=== PATIENT | female | born 1950 | race Caucasian/White ===

== ENCOUNTER 2024-05-23 10:47 | Emergency (ER) | payer MEDICARE, OTHER, SELFPAY ==
[2024-05-23] VITALS (8 sets, daily range): BP systolic 107–141; BP diastolic 50–88; PULSE 60–63
--- NOTE | 2024-05-23 12:04 | ED.GENMED ---
History of Present Illness
General
Chief Complaint: Fainting Sensation
Source: patient
Exam Limitations: none
Time Seen by Provider: 05/23/24 11:25
Nursing documentation reviewed up to this point in time: agreed with
History of Present Illness
History of Present Illness:
pt is a 74 y/o F with h/o remote breast CA;
h/o 'low blood pressure' and near syncope episodes throughout her life, never seen by cards
here with syncope while at the [employer]
she was sittin ruth the chair getting her hair colored and suddenly felt lightheaded with tunnel vision; told the staff that she felt hot and needed to put her head down. she leaned forward and then felt better, which is what she normally does when
she feels this way
then they sat her up and she got up and felt very lightheaded again and warm
they sat her down to get the dye out of her hair and she passed out
pt had no cp, sob, abdominal pain, vomiting, headache, vision changes, weakness
she feels much better now
no black stool or anemia
does say she has ahd 2 nera syncope episodes while she had covid on paxlovid and wasn't eating, that was about 3 weeks ago
Past History
Past History
ED Past Medical History: Cancer (breast) and Hypothyroidism
Social History
Tobacco: Non-smoker
Review of Systems
Review of Systems
Allergies reviewed?: Yes
All Other Systems: Not applicable
Phy Exam
Physical Exam
Physical Exam:
GENERAL: Alert , in no apparent distress
EYE: pupils equal and reactive
NECK: Supple
ENT: o/p clr, mmm.
CARDIAC: Regular rate and rhythm . Minimal ankle edema
LUNGS: Clear breath sounds bilaterally, no acute respiratory distress, no wheezes/rales/rhonchi
ABDOMEN: Soft, without focal tenderness, no r/g, no cvat, normal bowel sounds
NEUROLOGICAL: Alert and oriented, no focal neuro deficits
SKIN: Warm and dry, skin intact.
MUSCULOSKELETAL: Minimal ankle edema edema, well perfused. neg anuja's sign
PSYCH: Normal and appropriate interaction.
Course
Orders/Labs/Results
Orders:
Orders
05/23/24 10:55
Electrocardiogram (*1) Urgent
Reason for Study: Fatigue / Weakness
EKG- Treatment ONCE
05/23/24 12:17
Orthostatic VS- Treatment ONCE
05/23/24 12:31
CMP [Comprehensive Metabolic Panel] Urgent
Complete Blood Count/With Diff Urgent
05/23/24 12:57
0.9% Sodium Chloride 1000 ml [Nss] 1,000 ml IV BOLUS
Abnormal Lab Results
05/23/24
12:31
RBC 3.64 L 10^6/uL
(4.20-5.40)
Hgb 11.4 L g/dL
(12.0-16.0)
Hct 32.8 L %
(37.0-47.0)
MCH 31.3 H pg
(27.0-31.0)
RDW 14.6 H %
(11.5-14.5)
Absolute Lymphs (auto) 1.0 L 10^3/uL
(1.2-3.4)
Immature Gran % 0.6 H %
(0-0.5)
Neutrophils % 78.9 H %
(42.2-75.2)
Lymphocytes % 13.5 L %
(20.5-51.1)
Sodium 132 L mmol/L
(135-145)
Chloride 97 L mmol/L
(98-107)
BUN 24 H mg/dl
(7-17)
Glucose 101 H mg/dl
(70-99)
Calcium 10.5 H mg/dl
(8.4-10.2)
AST 39 H U/L
(14-36)
05/23/24 12:31
05/23/24 12:31
Vital Signs
Initial and Last Documented VS:
Initial Vital Signs
BP
133/50
05/23/24 10:50
Last Documented Vital Signs
Temp Pulse Resp BP Pulse Ox
98.1 F 65 22 139/75 100
05/23/24 10:52 05/23/24 13:15 05/23/24 13:15 05/23/24 13:00 05/23/24 13:15
MDM/Problems Addressed
Differential Diagnosis Includes:
dehydration, vasovagal episode
MDM/Problems Addressed:
74 y/o F
h/o near syncope in the past when dehydrated or standing up quickly, sh ehas low bp to begin with
near syncope while getting her hair colored; she was sitting upright, got warm and then tunnel vision
tried to put her head between legs and felt better briefly but then stood up and needed to sit down and passed out
no injuries
had very low bp for ems 60/40
back up to [facility]
feels well now
ate and drank normally today
no pain prior to syncope, no cp, sob, no dysrhythmia
on exam well appearing
no obvious murmur
lungs clear
neuro intact
ekg sinus kate
RBBB
bun slightly elevated
hg stable
orthos neg
got some IVF bu ther iv line was slow
reassessed 1350 and wants to go home
says this happens to her a lot and will drink water to stay hydrated
this was likely dehydration/vasovagal
d/c home
*Critical Care Note
Total Time (30-74mins, 75-104mins- exclusive of procedures): Not Applicable
ED Attending Note
-
Portions of this chart may have been created with voice recognition software.� Occasional wrong word or��sound alike� substitutions may have occurred due to the inherent limitations of voice recognition software.
Discharge Plan
Departure
Patient Disposition: Home (Routine Discharge)
Date of Disposition: 05/23/24
Time of Disposition: 13:52
Patient with high blood pressure during this ER visit?: No
Condition: Fair
Covid-19: Not Applicable
Discharge Problem:
Dehydration, Syncope, vasovagal
Instructions: Syncope (Fainting) (DC), Dehydration, Adult ED
Referrals:
Juan Jose Arias, DO [Active] - Follow up in 5-7 days
Paris Laguerre, [Family Provider] - Follow up in 2-3 days
Activity Restrictions/Additional Instructions:
You probably had a vasovagal episode when you drop your blood pressure and passed out. You also were slightly dehydrated. You were given some IV fluids and felt better but you need to continue to drink fluids and eat properly. Make sure to sit on
the side of the bed for moment before getting up after you have been lying down. Return for any worsening symptoms like repeated passing out episodes, chest pain, shortness of breath, fever etc. You can consider following up with the cardiology to
wear a monitor if this continues to happen to you. Return for any concerns
Interventions
Interventions:
*Risk Screen - Suicide Last Done: 05/23/24 10:53
*General Assessment Last Done: 05/23/24 10:53
*Neglect/Abuse Screening Last Done: 05/23/24 10:53
ED- Fall Risk Assessment Last Done: 05/23/24 12:17
*ED COVID-19 Vaccine History Last Done: 05/23/24 10:53
*Nursing Disposition Last Done: 05/23/24 13:55
ED- Cardiac Assessment Last Done: 05/23/24 12:17
ED- Neurological Assessment Last Done: 05/23/24 12:17
Discharge Date and Time
Discharge Date/Time: 05/23/24 13:56
Print Language: ARABIC
[2024-05-23 12:38] LABS: % Basophils 0.3 % (0-2); % Eosinophils 0.6 % (0-6); % Immature Granulocytes 0.6 % (0-0.5); % Lymphocytes 13.5 % (20.5-51.1); % Monocytes 6.1 % (1.7-9.3); % Neutrophils 78.9 % (42.2-75.2); Absolute Monocytes 0.4 10^3/uL (0.1-0.6); Absolute Neutrophils 5.7 10^3/uL (1.4-6.5); Hematocrit 32.8 % (37.0-47.0); Hemoglobin 11.4 g/dL (12.0-16.0); Mean Corp Hgb Conc. 34.8 g/dL (33.0-37.0); Mean Corpuscular Hgb 31.3 pg (27.0-31.0); Mean Corpuscular Volume 90.1 fL (81.0-99.0); Mean Platelet Volume 9.8 fL (7.4-10.4); Nucleated Red Blood Cells % 0 %; Platelet Count 160 10^3/uL (130-400); Red Blood Cell Count 3.64 10^6/uL (4.20-5.40); Red Cell Dist. Width 14.6 % (11.5-14.5); White Blood Cell Count 7.3 10^3/uL (4.8-10.8)
[2024-05-23 12:50] LABS: ALT (SGPT) 28 U/L (0-35); AST (SGOT) 39 U/L (14-36); Alkaline Phosphatase 98 U/L (38-126); Blood Urea Nitrogen 24 mg/dl (7-17); Calcium 10.5 mg/dl (8.4-10.2); Carbon Dioxide 26 mmol/L (22-30); Chloride 97 mmol/L (98-107); Estimated Creatinine Clearance 49 ml/min; Glucose 101 mg/dl (70-99); Potassium 4.2 mmol/L (3.5-5.1); Sodium 132 mmol/L (135-145); Total Bilirubin 0.7 mg/dl (0.2-1.3); eGFR > 60.00
[2024-05-23] MEDS: NSS 1000 IV (13:00)
[2024-05-23 14:10] LABS: Albumin 4.4 g/dl (3.5-5.0)
== END 2024-05-23 13:56 | disposition home or self-care (01) ==
LOC: EMR 10:47
PROVIDERS: EMERGENCY PHYSICIAN Emergency Medicine; FAMILY PHYSICIAN Internal Medicine
DX: E86.0 Dehydration (principal); R55 Syncope and collapse; E03.9 Hypothyroidism, unspecified
CPT/HCPCS: 99283; 96360; 80053; 85025; 93005

== ENCOUNTER 2024-10-02 10:51 | Emergency (ER) | payer MEDICARE, OTHER, SELFPAY ==
[2024-10-02 11:06] VITALS: BP 126/56
--- NOTE | 2024-10-02 12:35 | ED.GENMED ---
History of Present Illness
General
Chief Complaint: Skin Surface Trauma
Source: patient
Exam Limitations: none
Time Seen by Provider: 10/02/24 12:20
History of Present Illness
History of Present Illness:
Patient cut her finger with a knife 2 days ago. Ongoing pain and bleeding. It was wrapped at urgent care. Tetanus shot given then.
Past History
Past History
ED Past Medical History: Cancer (breast) and Hypothyroidism
Social History
Tobacco: Non-smoker
Phy Exam
Physical Exam
Physical Exam:
General: Nontoxic appearing in no distress
Skin: Warm and dry, no rash
Neuro: Alert, nontoxic, grossly nonfocal
Psychiatric: Good eye contact and appropriate
Musculoskeletal: Left fifth finger wrapped. Carefully removed. Some blood on the dressing. A V-shaped 1.5 cm laceration superficial but actively bleeding. Appears clean. No sign of infection.
Course
Vital Signs
Initial and Last Documented VS:
Initial Vital Signs
Temp Pulse Resp BP Pulse Ox
97.9 F 74 16 126/56 98
10/02/24 11:06 10/02/24 11:06 10/02/24 11:06 10/02/24 11:06 10/02/24 11:06
Last Documented Vital Signs
Temp Pulse Resp BP Pulse Ox
97.9 F 74 16 126/56 98
10/02/24 11:06 10/02/24 11:06 10/02/24 11:06 10/02/24 11:06 10/02/24 11:06
*Critical Care Note
Total Time (30-74mins, 75-104mins- exclusive of procedures): Not Applicable
Update Note
Update Note:
Too late for resuturing. There is a slight blackness to the tip of the flap. Although very minimal in nature. Was sterilely Steri-Stripped with glue.
Rechecked prior to discharge. Very very very minimal ooze of blood. Stable for discharge
ED Attending Note
-
Portions of this chart may have been created with voice recognition software.� Occasional wrong word or��sound alike� substitutions may have occurred due to the inherent limitations of voice recognition software.
Discharge Plan
Departure
Patient Disposition: Home (Routine Discharge)
Date of Disposition: 10/02/24
Time of Disposition: 13:00
Patient with high blood pressure during this ER visit?: Yes
Discharge Problem:
Fifth finger laceration left
Instructions: Laceration Repair With Glue (DC), BLOOD PRESSURE, Steri-Strips over Glued Wound
Activity Restrictions/Additional Instructions:
Get wound checked in 2 to 4 days
Interventions
Interventions:
*Risk Screen - Suicide Last Done: 10/02/24 11:06
*General Assessment Last Done: 10/02/24 11:06
*Neglect/Abuse Screening Last Done: 10/02/24 11:06
*ED COVID-19 Vaccine History Last Done: 10/02/24 11:06
Discharge Date and Time
Print Language: HONDURAN
[2024-10-02 13:38] VITALS: BP 116/76
== END 2024-10-02 13:39 | disposition home or self-care (01) ==
LOC: EMR 10:51
PROVIDERS: EMERGENCY PHYSICIAN Emergency Medicine; FAMILY PHYSICIAN Internal Medicine
DX: S61.217A Laceration without foreign body of left little finger without damage to nail, initial encounter (principal); W26.0XXA Contact with knife, initial encounter; E03.9 Hypothyroidism, unspecified
CPT/HCPCS: 99282

== ENCOUNTER → 2025-03-16 06:19 | Outpatient (REF) | payer MEDICARE, OTHER, SELFPAY ==
[2025-03-16 11:15] LABS: ALT (SGPT) 23 U/L (0-35); AST (SGOT) 31 U/L (14-36); Albumin 4.3 g/dl (3.5-5.0); Alkaline Phosphatase 78 U/L (38-126); Blood Urea Nitrogen 20 mg/dl (7-17); Calcium 10.1 mg/dl (8.4-10.2); Carbon Dioxide 30 mmol/L (22-30); Chloride 99 mmol/L (98-107); Glucose 89 mg/dl (70-99); Potassium 4.3 mmol/L (3.5-5.1); Sodium 135 mmol/L (135-145); Total Bilirubin 0.8 mg/dl (0.2-1.3); Total Cholesterol 217 mg/dl (50-199); Total Protein 6.6 g/dl (6.3-8.2); Triglyceride 52 mg/dl (10-149); Very Low Density Lipoprotein 10 mg/dl (0-30); eGFR > 60.00
[2025-03-16 11:38] LABS: HDL Cholesterol 125 mg/dl; LDL Cholesterol, Calculated 82 mg/dl
[2025-03-16 13:02] LABS: Free T4 1.01 ng/dl (0.78-2.19)
== END ==
LOC: HWLAB 06:19
PROVIDERS: ATTENDING PHYSICIAN Internal Medicine
DX: M79.89 Other specified soft tissue disorders (principal); E03.9 Hypothyroidism, unspecified; E78.2 Mixed hyperlipidemia; Q44.6 Cystic disease of liver
CPT/HCPCS: 36415; 80053; 80061; 84439; 84443

== ENCOUNTER → 2025-04-28 06:19 | Outpatient (REF) | payer MEDICARE, OTHER, SELFPAY ==
[2025-04-28 10:56] LABS: Free T4 1.03 ng/dl (0.78-2.19)
== END ==
LOC: HWLAB 06:19
PROVIDERS: ATTENDING PHYSICIAN Internal Medicine
DX: E03.9 Hypothyroidism, unspecified (principal)
CPT/HCPCS: 36415; 84439; 84443